=== PATIENT | male | born 1970 | race Caucasian/White ===

== ENCOUNTER 2016-10-01 18:25 | Inpatient (IN) | payer OTHER ==
--- NOTE | ~2016-10-01 | CO ---
Unit #: [id number] #: [id number] Patient: NEERU LI [id number] [facility] [address] [place] [address] [id number] MR#: [id number] NAME: NEERU LI ROOM: [facility] Age: 45 Sex: M Admission Date: 10/01/2016 : 1970 Attending Physician: Clifton Devlin M.D. Consultation Date: 10/02/2016 CONSULTATION REPORT ORDERING PROVIDER Dr. Devlin. REASON FOR CONSULTATION Elevated blood pressure. SUBJECTIVE The patient reports that since admission he has had a heavy chest pain. He also reports palpitations and shortness of breath. He denies that any of the chest pain or shortness of breath is worse with exertion, but is "just all the time." He does report headache and is worried about the blood pressures that he has had in the hospital. He claims he has never had high blood pressure before, however, he had not been checking blood pressures. He describes the chest pain as a heavy dull feeling, no sharp or ripping pain. He does not take any medication for blood pressure. He is withdrawing from alcohol. OBJECTIVE HEART: Regular rate and rhythm. LUNGS: Clear to auscultation bilaterally. NEUROLOGIC: The patient does appear very anxious. DIAGNOSTIC STUDIES CARDIOVASCULAR STUDIES: His EKG showed normal sinus rhythm, no ST elevation or depression. There, his blood pressures were noted to be elevated with range from 130s/90s to 150s/100s. The remainder of his examination was unremarkable. ASSESSMENT High blood pressure and chest pain. PLAN Plan is to get a chest x-ray and start the patient on Norvasc 5 mg. Dictated by... Anya Koo A.P.R.N. for Samir Quiroz M.D. EF/sixtol Unit #: [id number] #: [id number] Patient: NEERU LI TD: 10/02/2016 22:48 JOB #: [id number] CONSULTATION REPORT Page 1 of 1 X ANYA KOO APRN CONSULTATION REPORT
--- NOTE | ~2016-10-01 | HP ---
Unit #: [id number] #: [id number] Patient: NEERU LI [id number] [facility] [address] [place] [address] [id number] I MR#: [id number] NAME: NEERU LI ROOM: [facility] Age: 45 Sex: M Admission Date: 10/01/2016 : 1970 Attending Physician: Clifton Devlin M.D. Admitting Physician: Clifton Devlin M.D. Primary Care Physician: Primary Care Physician No HISTORY AND PHYSICAL HISTORY OF PRESENT ILLNESS The patient is a 45-year-old male admitted to [facility] on 10/01/2016 for auditory hallucinations and to detox from alcohol. PAST MEDICAL HISTORY 1. Alcohol abuse 2. Obesity 3. Pancreatitis 4. Nicotine dependence PAST SURGICAL HISTORY The patient denies. 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 He smokes a half pack of cigarettes daily, drinks four to five vodka shots per day. FAMILY MEDICAL HISTORY Noncontributory. ALLERGIES Penicillin CURRENT MEDICATIONS Zoloft, Xanax, Wellbutrin and Ambien. REVIEW OF SYSTEMS CONSTITUTIONAL: No fever or chills. HEENT: Denies any sore throat, ear pain or runny nose. CARDIOVASCULAR: He complains of chest pain. CHEST: Denies shortness of breath or cough. No hemoptysis. GASTROINTESTINAL: Denies nausea, vomiting, diarrhea or chronic constipation. ENDOCRINE: Denies history of increased thirst or urination. No recent significant weight loss or gain. GENITOURINARY: Denies dysuria, frequency, or hematuria. SKIN: Denies any rashes. HEMATOLOGIC: Denies history of increased bleeding or bruising. MUSCULOSKELETAL: Denies any hot, swollen joints. No generalized muscle pain. NEUROLOGIC: Denies problems with vision or speech. No frequent, severe headaches. No numbness, tingling or weakness in any extremities. Denies loss of bladder or bowel control. Unit #: [id number] #: [id number] Patient: NEERU LI PHYSICAL EXAM GENERAL: He is awake, alert and oriented in no acute distress. VITAL SIGNS: Temperature 98.2, heart rate 75, respiration 16, blood pressure 132/97. HEIGHT: 5'11". WEIGHT: 223 pounds. SKIN: Warm and dry without rash or lesion. HEENT: Normocephalic. TMs not viewed. Oral and nasal passages clear. Conjunctivae clear. PERRLA. EOMs intact. NECK: Supple without lymphadenopathy or thyromegaly. HEART: Regular rate and rhythm without murmur. LUNGS: Clear. ABDOMEN: Soft, nontender. : Not done. EXTREMITIES: No evidence of cyanosis, clubbing or edema. Moves all without focal deficit. NEUROLOGICAL: Grossly within normal limits. Cranial Nerves: II: Visual bhatia are intact. III, IV AND : Extraocular movements are intact. Pupils are equal, round and reactive to light. V: Facial sensation is grossly normal. VII: Facial movements and expression are normal. VIII: Auditory acuity grossly intact. IX, X: Uvula is midline. Phonation is normal. XI: Patient shrugs shoulders and turns head normally. XII: Tongue protrudes in the midline. Sensory and Motor Function: Sensory and motor sensation is grossly normal. Motor: moves all extremities well. IMPRESSION 1. Psychiatric admission. 2. Obesity 3. Pancreatitis 4. Smoker 5. Alcohol dependence 6. Chest pain RECOMMENDATIONS Psychiatric per psychiatrist. MEDICAL: No contraindication to participate in facility activities. MEDICAL PROGNOSIS Good. MEDICAL CONDITION Stable. Dictated by... Celestine Mccall/efrain Unit #: [id number] #: [id number] Patient: NEERU LI TD: 10/03/2016 20:39 JOB #: [id number] HISTORY AND PHYSICAL Page 1 of 1 X TRINI ANGLIN APRN HISTORY AND PHYSICAL
--- NOTE | ~2016-10-01 | DS ---
Unit #: [id number] #: [id number] Patient: NEERU LI [id number] [facility] [address] [place] [address] [id number] I MR#: [id number] NAME: NEERU LI ROOM: [facility] Age: 45 Sex: M Admission Date: 10/01/2016 : 1970 Discharge Date: 10/05/2016 Attending Physician: Clifton Devlin M.D. Primary Care Physician: Primary Care Physician No DISCHARGE SUMMARY REASON FOR ADMISSION Hallucinations, alcohol withdrawal. DIAGNOSTIC STUDIES LABORATORY DATA: Remarkable for AST 102, ALT 105. HOSPITAL COURSE Patient was admitted to inpatient unit on 10/01/16 and discharged on 10/05/16. Patient was treated with group therapy, individual therapy, medication management. Patient responded well with the above modalities of treatment and detox protocol. Patient was also started on Zyprexa that helped with the mood and hallucinations. Subsequently, patient was discharged with a plan to follow up in outpatient program. DISCHARGE DIAGNOSES PSYCHIATRIC: 1. Alcohol use disorder, severe, F10.20. 2. Psychosis NOS, F29.0. 3. Mood disorder NOS, F32.9. 4. Rule out major depressive disorder, recurrent, severe, F33.2. SECONDARY DIAGNOSIS: Deferred. MEDICAL DIAGNOSES: 1. History of pancreatitis. 2. Increased AST/ALT, liver enzymes. STRESSORS: Psychosocial stressor. FOLLOWUP CARE Patient to follow up in outpatient clinic as per hospital social worker. DISCHARGE MEDICATIONS 1. Zoloft 100 mg at bedtime for depression. 2. Norvasc 5 mg daily for hypertension. 3. Zyprexa 10 mg at bedtime for mood stabilization and psychosis. CONDITION AT DISCHARGE Patient pleasant, cooperative. Denied any psychotic symptoms or any suicidal ideation. PROGNOSIS Unit #: [id number] #: [id number] Patient: NEERU LI Guarded. DIET AND ACTIVITY As tolerated. Dictated by... Clifton Devlin M.D. BENJAMÍN/isaiah TD: 10/06/2016 20:25 JOB #: [id number] DISCHARGE SUMMARY Page 1 of 1 X Chhibber,Clifton Z MD X DISCHARGE SUMMARY
--- NOTE | ~2016-10-01 | PN ---
Unit #: [id number] #: [id number] Patient: NEERU LI [id number] [facility] [address] [place] [address] [id number] MR#: [id number] NAME: NEERU LI ROOM: [facility] Age: 45 Sex: M Admission Date: 10/01/2016 : 1970 Attending Physician: Clifton Devlin M.D. Admitting Physician: Clifton Devlin M.D. Primary Care Physician: Primary Care Physician Sharmila BARCLAY PROGRESS NOTES DATE 10/02/2016 DISCUSSION Mr. Velasco is a 45-year-old male, seen on 10/02/2016. The patient interviewed, chart reviewed, and obtained information from the nursing staff. The patient withdrawn, isolative, flat affect. Vital signs, 98.2, 85, 16, and 150/100. REVIEW OF SYSTEMS Complete review of systems unremarkable. MENTAL STATUS EXAMINATION General appearance: Patient dressed casually. Attention span and concentration, fair. Oriented to place and person. Mood and affect, sad and dysphoric. Speech, monotone. Thought process, concrete. The patient denied any thoughts of harming self or others but still having withdrawal symptoms, anxious, nervous, withdrawn. Recent and remote memory, poor. Insight and judgment, poor. DIAGNOSES 1. Alcohol use disorder, severe, F10.20. 2. Mood disorder, NOS. ASSESSMENT/PLAN Advised to continue with the current medication and therapeutic protocol, and if needed consider further adjustment of medication. Dictated by... Dorothy Mina/emy TD: 10/04/2016 08:27 JOB #: [id number] Unit #: [id number] #: [id number] Patient: NEERU LI PROGRESS NOTES Page 1 of 1 X Clifton Devlin MD PROGRESS NOTE
--- NOTE | ~2016-10-01 | PN ---
Unit #: [id number] #: [id number] Patient: ROD LI [id number] [facility] [address] [place] [address] [id number] I MR#: [id number] NAME: ROD LI ROOM: [facility] Age: 45 Sex: M Admission Date: 10/01/2016 : 1970 Attending Physician: Clifton Devlin M.D. Admitting Physician: Clifton Devlin M.D. Primary Care Physician: Primary Care Physician Sharmila PICKETT NOTES DATE 10/03/2016 DISCUSSION Rod is a 45-year-old male, seen on 10/03/2016. The patient interviewed, chart reviewed, and obtained information from the nursing staff. The patient was admitted with alcohol abuse, had psychotic symptoms and the patient is still having those symptoms, according to family. The patient is not stable, still having paranoia, hallucinations. The patient's vital signs are stable, 97.1, 89, 148/106. The patient was started on antihypertensive today. REVIEW OF SYSTEMS Complete review of systems unremarkable. MENTAL STATUS EXAMINATION General appearance: Patient dressed casually. Attention span and concentration, fair. Oriented to place and person. Mood and affect, sad and dysphoric, flat affect. The patient denied any thoughts of harming self or others but psychotic symptoms as mentioned above. Recent and remote memory, poor. Insight and judgment, poor. DIAGNOSES 1. Mood disorder, NOS. 2. Alcohol use disorder, severe. 3. Psychosis, NOS. ASSESSMENT/PLAN Advised to continue with the current detox protocol and advised to start the patient on Zyprexa 10 mg at bedtime for the above mentioned symptoms. Continue with the inpatient programming, if needed consider further adjustment of medication. Dictated by... Dorothy Mina/emy TD: 10/04/2016 11:43 Unit #: [id number] #: [id number] Patient: ROD LI JOB #: [id number] [facility] PROGRESS NOTES Page 1 of 1 X Clifton Devlin MD X PROGRESS NOTE
--- NOTE | ~2016-10-01 | CR63 ---
[facility] A Service of [facility] RADIOLOGY TEXT RESULTS PATIENT: NEERU LI LOCATION: P1E P185-1 : [birth year] UNIT #: [id number] AGE: [address]: Clifton Devlin MD SEX: M ORDER DR: [id number] [facility] [address] [facility]. [place], [place] [address] [id number] MR#: [id number] Acc #: [id number] NAME: NEERU LI : 1970 SEX: M STUDY DATE/TIME: 10/02/2016 17:06 UNIT: [facility] ROOM: [facility] STUDY DESCRIPTION: CR Chest 2 View Attending Physician: Clifton Devlin M.D. Ordering Physician: Clifton Devlin M.D. Primary Care Physician: No Primary Care Physician MEDICAL IMAGING REPORT This report is preliminary unless electronic signature is present EXAM Chest 2 views 10/02/2016 1706 hours HISTORY 45-year-old with hypertension. Patient has a cough today. COMPARISON 08/02/2015 FINDINGS Upright PA and lateral views of the chest demonstrate slightly lower lung volumes than on the prior study. Cardiac, mediastinal and hilar contours are normal. There is calcified granulomata in the right mid lung and small calcified changes in the left perihilar region unchanged. There is no effusion or bony lesion. IMPRESSION Benign calcified granulomatous changes. There are no acute cardiopulmonary findings. No appreciable change from 08/02/2015. Dictated by... Elly Kothari M.D. THIS IS AN ELECTRONICALLY VERIFIED REPORT Elly Kothari M.D. at 10/03/2016 6:58 PM ALEJANDRINA/kimberli TD: 10/03/2016 04:55 JOB #: [id number] MEDICAL IMAGING REPORT Page 1 of 1 COPY
--- NOTE | ~2016-10-01 | PN ---
Unit #: [id number] #: [id number] Patient: NEERU LI [id number] [facility] [address] [place] [address] [id number] MR#: [id number] NAME: NEERU LI ROOM: [facility] Age: 45 Sex: M Admission Date: 10/01/2016 : 1970 Attending Physician: Clifton Devlin M.D. Admitting Physician: Clifton Devlin M.D. Primary Care Physician: Primary Care Physician Sharmila PICKETT NOTES DATE 10/04/2016 DISCUSSION Mr. Velasco is a 45-year-old male, seen on 10/04/2016. The patient interviewed, chart reviewed, and obtained information from the nursing staff. The patient has a sitter, compliant and cooperative, currently on Zyprexa and detox protocol. No aggressive behavior. The patient was cooperative, redirectable. The patient was able to maintain safe behavior, still isolative, denied any hallucinations. The patient currently on one-to-one. The patient somewhat confused, no inappropriate behavior, compliant and cooperative, on detox monitoring. The patient's vital signs, 98.4, 80, 16, and 106/66. REVIEW OF SYSTEMS Complete review of systems unremarkable. MENTAL STATUS EXAMINATION General appearance: Patient dressed casually. Attention span and concentration, fair. Oriented to place and person. Mood and affect, sad and dysphoric. Speech, monotone. Thought process, concrete. The patient denied any thoughts of harming self or others, denied any hallucinations. Recent and remote memory, poor. Insight and judgment, poor. DIAGNOSES 1. Alcohol use disorder, severe. 2. Mood disorder, NOS. 3. Psychosis, NOS. ASSESSMENT/PLAN Advised to continue with the current medication and therapeutic protocol, and if needed consider further adjustment of medication. Dictated by... Dorothy Mina/emy TD: 10/05/2016 09:52 Unit #: [id number] #: [id number] Patient: NEERU LI JOB #: [id number] [facility] PROGRESS NOTES Page 1 of 1 X Clifton Devlin MD PROGRESS NOTE
--- NOTE | ~2016-10-01 | PA ---
Unit #: [id number] #: [id number] Patient: NEERU LI [id number] [facility] [address] [place] [address] [id number] MR#: [id number] NAME: NEERU LI ROOM: [facility] Age: 45 Sex: M Admission Date: 10/01/2016 : 1970 Date of Assessment: Attending Physician: Clifton Devlin M.D. Admitting Physician: Clifton Devlin M.D. PSYCHIATRIC ASSESSMENT INFORMANTS The patient reliability, fair informant and chart reliability, good. CHIEF COMPLAINT Alcohol abuse and hallucination. HISTORY OF PRESENT ILLNESS Mr. Velasco is a 45-year-old male, seen with the above-mentioned complaint. The patient presented with the alcohol abuse, severe. Reported using alcohol on a daily basis. Reported hearing voices. Withdrawal symptoms in the last 2 months. The patient denied any homicidal ideation or suicidal ideation at this time. The patient reported tobacco use, age of onset 29 and alcohol, age of onset 44. The patient reported no history of blackout, HIV, hepatitis, or IV drug use, but history of withdrawal symptoms such as abdominal cramping, muscle cramping, diarrhea, diaphoresis, depressed mood, irritability, nervousness, poor appetite, poor concentration, restlessness, rhinorrhea, sleep problems, and tremors. PAST PSYCHIATRIC HISTORY Unremarkable for any history of previous treatment. FAMILY HISTORY AND SOCIAL HISTORY Poor support system. No history of abuse. MEDICAL HISTORY Remarkable for history of pancreatitis. MEDICATION HISTORY The patient is on Zoloft 100 mg at bedtime, Xanax p.r.n., Wellbutrin 150 mg daily, and Ambien 5 mg at bedtime. ALLERGIES No known drug allergies. SUBSTANCE ABUSE HISTORY Please see above. REVIEW OF SYSTEMS HEENT: Eyes, clear. Ears, nose, mouth, and throat; clear. CARDIOVASCULAR: Unremarkable. RESPIRATORY: Unremarkable. GI: Unremarkable. Unit #: [id number] #: [id number] Patient: NEERU LI : Unremarkable. SKIN: Unremarkable. LYMPH NODE: Unremarkable. NEUROLOGIC: Unremarkable. ENDOCRINE: Unremarkable. HEMATOLOGIC: Unremarkable. ALLERGIC/IMMUNOLOGIC: Unremarkable. MUSCULOSKELETAL: Muscle strength and tone, no atrophy or abnormal movement. Gait normal. MENTAL STATUS EXAMINATION CONSTITUTIONAL: Measurement of vital signs; temperature 98.2, heart rate 75, respiratory rate 16, and blood pressure 132/97. Height 5 feet 11 inches. Weight 223 pounds. GENERAL APPEARANCE: The patient dressed casually. No facial deformity noted. MUSCULOSKELETAL: Please see above. PSYCHIATRIC EXAMINATION Description of speech, regular rate. Description of thought process, goal directed. Description of association, intact. Description of abnormal psychotic thinking; the patient denied any hallucination or delusions, but at the time of admission hearing things, seeing things, mood lability, and substance abuse. Description of the patient's judgment: Concerning everyday activity, poor. Social situation, poor. Concerning psychiatric condition, poor. Complete mental status examination; oriented in time, place, and person. Attention span and concentration, fair. Language, intact. Fund of knowledge, fair. Recent and remote memory, fair. Mood and affect, sad and depressed. Insight and judgment, fair to poor. ASSETS AND LIABILITIES Assets, the patient is articulate and able to take care of his ADL. Liability, history of substance abuse and depression. ADMITTING DIAGNOSES Psychiatric: Alcohol use disorder, severe, F10.20; psychosis, not otherwise specified, F29.0; history of mood disorder, not otherwise specified, F32.9; and rule out major depressive disorder, recurrent, severe, F33.2. Secondary diagnosis: Deferred. Medical diagnosis: History of pancreatitis. Stressors: Psychosocial stressors. PSYCHIATRIC PLAN AND TREATMENT GOAL AND DISCHARGE PLAN 1. Advised to admit the patient on the inpatient unit. Provide safe, supportive, and structured environment. 2. Ordered labs; CBC, CMP, UA, and UDS. 3. Advised to discontinue Ambien and Wellbutrin. Continue with the other medication. Detox protocol and detox monitoring. Medical consult to evaluate the patient's medical condition. The patient to start with detox protocol and detox monitoring. The patient to attend all the programing on the inpatient unit, group therapy, individual therapy, and chemical dependency group. Unit #: [id number] #: [id number] Patient: NEERU LI TREATMENT GOAL To attain euthymic mood, gain insight into his problem, and learn coping skills. DISCHARGE PLAN Plan to stabilize the patient and consider followup in outpatient program. ESTIMATED LENGTH OF STAY 5 days. Dictated by... Clifton Devlin M.D. BENJAMÍN/zohaib TD: 10/02/2016 16:33 JOB #: [id number] PSYCHIATRIC ASSESSMENT Page 1 of 1 X Clifton Devlin MD PSYCHIATRIC ASSESSMENT
--- NOTE | ~2016-10-01 | EKG ---
PATIENT: NEERU LI UNIT #: [id number] Ventricular Rate: 71 BPM Atrial Rate: 71 BPM P-R Interval: 156 ms QRS Duration: 80 ms Q-T Interval: 386 ms QTC Calculation(Bezet): 419 ms P [place]: 47 degrees Calculated R [place]: 26 degrees Calculated T [place]: 43 degrees Diagnosis Line: Normal sinus rhythm Diagnosis Line: Normal ECG Diagnosis Line: No previous ECGs available Diagnosis Line: Confirmed by HEYDI STEWARD MD ([id number]) on Diagnosis Line: 10/04/2016 10:40:41 PM INTERPRETING MD: PAL[place]O
[2016-10-02 14:46] LABS: URINE APPEARANCE CLEAR; URINE BILIRUBIN NEG (NEG); URINE BLOOD TRACE (NEG); URINE COLOR YELLOW; URINE GLUCOSE NEG (NEG); URINE KETONE NEG (NEG); URINE LEUKOCYTE ESTERASE NEG (NEG); URINE NITRATE NEG (NEG); URINE PROTEIN NEG (NEG); URINE SPECIFIC GRAVITY 1.007 (1.003-1.035); URINE UROBILINOGEN 0.2 MG/DL (NEG)
[2016-10-02 14:50] LABS: URINE BACTERIA AUWI NEG (NEGATIVE); URINE SQUAMOUS EPITHELIAL CELL NONE SEEN /[HPF]; UWBCS1 AUWI 0-2 (0-5)
[2016-10-02 14:59] LABS: AMPHETAMINE NEG (NEG); BARBITURATES NEG (NEG); BENZODIAZEPINES POS (NEG); COCAINE NEG (NEG); MARIJUANA NEG (NEG); OPIATES NEG (NEG); TRICYCLIC ANTIDEPRESSANTS NEG (NEG); U METHADONE NEG (NEG)
[2016-10-03 12:09] LABS: BASOPHIL% 0.9 % (0-2.5); EOSINOPHIL# 0.1 X10e3 (0-0.7); EOSINOPHIL% 3.4 % (0.0-7.0); HEMATOCRIT 41.5 % (38.0-50.0); HEMOGLOBIN 14.1 gm/dL (13.0-16.0); LYMPHOCYTE# 0.8 X10e3 (1.0-3.5); LYMPHOCYTE% 21.8 % (17.0-45.0); MEAN CELL VOLUME 92.8 FL (83-96); MEAN CORPUSCULAR HEMOGLOBIN 31.6 PG (28-34); MONOCYTE# 0.5 X10e3 (0-1.0); MONOCYTE% 14.9 % (3.0-12.0); NEUTROPHIL# 2.1 X10e3 (1.5-7.1); PLATELET COUNT 121 X10e3 (140-420); RED BLOOD COUNT 4.47 X10e (3.90-5.60); RED CELL DISTRIBUTION WIDTH 13.6 % (11.0-15.5); WHITE BLOOD COUNT 3.6 X10e3 (4.0-10.5)
[2016-10-03 12:11] LABS: DIFF IND NO
[2016-10-03 12:35] LABS: ALBUMIN SERUM 4.1 g/dL (3.5-5.0); BILIRUBIN,TOTAL 1.7 mg/dL (0.2-2.0); CALCIUM SERUM 9.3 mg/dL (8.4-10.2); CREATININE SERUM 0.8 mg/dL (0.6-1.4); GLOM FILT RATE Estimated 107.2 mL/min (>60); POTASSIUM 3.8 mmol/L (3.5-5.1); PROTEIN TOTAL SERUM 7.2 g/dL (6.0-8.3)
== END 2016-10-05 10:08 | DRG 897 ==
LOC: P1E 20:24
PROVIDERS: Psychiatry & Neurology Psychiatry
PROC: HZ2ZZZZ Detoxification Services for Substance Abuse Treatment (ICD-10-PCS; principal; 2016-10-01)
DX: F10.230 Alcohol dependence with withdrawal, uncomplicated (principal); F33.2 Major depressive disorder, recurrent severe without psychotic features; F29 Unspecified psychosis not due to a substance or known physiological condition; F39 Unspecified mood [affective] disorder; R07.9 Chest pain, unspecified; R03.0 Elevated blood-pressure reading, without diagnosis of hypertension; E66.9 Obesity, unspecified; Z68.31 Body mass index [BMI] 31.0-31.9, adult; F17.210 Nicotine dependence, cigarettes, uncomplicated; Z88.0 Allergy status to penicillin
CPT/HCPCS: 71020; 80053; 80307; 81003; 85025; 86592; 93005